=== PATIENT | male | born 1960 | race Caucasian/White ===

== ENCOUNTER 2020-10-15 13:32 | Outpatient (AMB) | payer MEDICARE, MEDICAID, SELFPAY ==
[2020-10-15 13:35] VITALS: BP 138/70; PULSE 78; TEMP 35.6; O2SAT 98; BMI 28.2
--- NOTE | 2020-10-15 13:35 | MHC.OFFVIS ---
Vital Signs 10/15/20 13:35 Height 6 ft Weight 208 lb BMI 28.2 BP 138/70 Blood Pressure Location Lt brachial Position Sitting Pulse 78 Pulse Source Pulse Oximeter Temp 96.0 F L Pulse Oximetry (%) 98 Intake Visit Reasons: Establish care Allergies gabapentin (GABAPENTIN) Allergy (Unknown, Verified 10/31/20 22:49) suicidal ideation ketamine (KETAMINE) Allergy (Unknown, Verified 10/31/20 22:49) UNKNOWN Penicillins (PENICILLINS) Allergy (Unknown, Verified 10/31/20 22:49) UNKNOWN Medication List - Last Reconciled 10/15/20 by Jonatan Rosenberg MD acetaminophen 500 mg PO Q6H PRN amlodipine 10 mg PO DAILY aspirin 81 mg PO DAILY atorvastatin 80 mg PO DAILY buspirone 5 mg PO BID carvedilol 12.5 mg PO BID cholecalciferol (vitamin D3) 50 mcg PO DAILY hydroxyzine HCl 10 mg PO TID PRN insulin glargine (Lantus U-100 Insulin) 10 units subcut DAILY insulin lispro 10 units subcut TID lisinopril 2.5 mg PO DAILY ondansetron HCl 4 mg PO Q12H oxycodone 10 mg PO QID PRN sevelamer carbonate (Renvela) 2.4 grams PO TID ticagrelor 90 mg PO BID PFSH Medical History (Updated 11/01/20 @ 01:20 by Jonatan Rosenberg MD) Anxiety Vitamin D deficiency Coronary artery disease Cataract Diabetic retinopathy Blurred vision, bilateral Mixed hyperlipidemia Benign essential hypertension End stage renal disease on dialysis due to type 2 diabetes mellitus Diabetes mellitus Surgical History History of leg amputation History of cholecystectomy Family History Father Alive and well Mother Alive and well Social History Alcohol intake: never Physical Exam Vital Signs: Last Vital Signs Temp 96.0 F L 10/15/20 13:35 Pulse 78 10/15/20 13:35 BP 138/70 10/15/20 13:35 Pulse Ox 98 10/15/20 13:35 BMI result Body Mass Index 28.2 Assessment & Plan Assessment & Plan (1) Diabetes mellitus: Code(s): E11.9 - Type 2 diabetes mellitus without complications Category: Medical Plan - Jonatan Rosenberg MD: In-office HgbA1c done today is at 6.5% - goal is < 7.0% Reinforced diabetic diet Continue Lantus 10 units Q HS and Humalog 10 units TID with meals or per sliding scale Will refer back to endocrinology for further evaluation and management Orders: Referrals Endocrinology Referral (2) End stage renal disease on dialysis due to type 2 diabetes mellitus: Code(s): E11.22 - Type 2 diabetes mellitus with diabetic chronic kidney disease; N18.6 - End stage renal disease; Z99.2 - Dependence on renal dialysis Category: Medical Plan - Jonatan Rosenberg MD: Is currently on hemodialysis 3 times a week () Follow up with nephrology as scheduled Orders: Referrals Endocrinology Referral (3) Benign essential hypertension: Code(s): I10 - Essential (primary) hypertension Category: Medical [place] - Jonatan Rosenberg MD: Reinforced low sodium diet - goal is systolic BP of at least 120 to 130 mm (4) Mixed hyperlipidemia: Code(s): E78.2 - Mixed hyperlipidemia Category: [facility] - Jonatan Rosenberg MD: Reinforced low cholesterol diet Continue Atorvastatin 80 mg QD Coding Level of Care Code Est Pt Level 3 (75488) Diagnoses Diabetes mellitus E11.9 End stage renal disease on dialysis due to type 2 diabetes mellitus E11.22; N18.6; Z99.2 Benign essential hypertension I10 Mixed hyperlipidemia E78.2 AUDIT C Alcohol Use Questionnaire (AUDIT-C) 1. How often do you have a drink containing alcohol?: Never 3. How often do you have six or more drinks on one occasion?: Never Total Score: 0 PHQ-2/PHQ-9 PHQ-2 Over the last 2 weeks, how often have you been bothered by any of the following problems? 1. Little interest or pleasure in doing things: not at all 2. Feeling down, depressed, or hopeless: not at all Total score: 0
== END 2020-10-15 15:01 ==
LOC: HO.HMGH 13:32
PROVIDERS: PCP Internal Medicine; Visit Provider Internal Medicine
DX: E11.9 Type 2 diabetes mellitus without complications (principal); E11.22 Type 2 diabetes mellitus with diabetic chronic kidney disease; N18.6 End stage renal disease; Z99.2 Dependence on renal dialysis; I12.0 Hypertensive chronic kidney disease with stage 5 chronic kidney disease or end stage renal disease; E78.2 Mixed hyperlipidemia
CPT/HCPCS: 99499

== ENCOUNTER → 2020-11-06 09:32 | Outpatient (REF) | payer MEDICARE, MEDICAID, SELFPAY ==
--- NOTE | 2020-11-06 09:41 | ECG_ITS ---
Test Reason : HX UT PRE OP Blood Pressure : / mmHG Vent. Rate : 089 BPM Atrial Rate : 089 BPM P-R Int : 154 ms QRS Dur : 120 ms QT Int : 396 ms P-R-T Axes : 045 046 -10 degrees QTc Int : 481 ms Normal sinus rhythm Possible Inferior infarct , age undetermined ST depression lateral leads Abnormal ECG No previous ECGs available Referred By: Jonatan Rosenberg Electronically Signed By:YAS GONZALEZ
[2020-11-06 10:05] LABS: MANUAL DIFF FLAG NO
[2020-11-06 10:09] LABS: Basophils Absolute Auto 0.1 X10*3/uL (0.0-0.2); Basophils Percent Auto 0.5 % (0-2); Eosinophils Absolute Auto 0.3 X10*3/uL (0.0-0.4); Eosinophils Percent Auto 3.2 % (0-4); Hematocrit 31.9 % (42-52); Hemoglobin 10.2 g/dl (14.0-18.0); Imm Gran Abs Auto 0.04 X10*3/uL (0.00-0.03); Imm Gran Pct Auto 0.4 % (0.0-0.4); Lymphocytes Absolute Auto 1.8 X10*3/uL (1.2-4.9); Lymphocytes Percent Auto 19.2 % (20-40); Mean Corpuscular Hemoglobin 29.1 pg (27.0-33.0); Mean Corpuscular Volume 90.9 fL (80-98); Mean Platelet Volume 9.1 fL (9.4-12.4); Monocytes Absolute Auto 0.6 X10*3/uL (0.1-1.2); Monocytes Percent Auto 6.2 % (2-11); Neutrophils Absolute Auto 6.6 X10*3/uL (2.0-8.3); Neutrophils Percent Auto 70.5 % (45-73); Platelet Count 255 X10*3/uL (160-400); Red Blood Count 3.51 X10*6/uL (4.60-5.80); Red Cell Distribution Width 13.3 % (11.0-16.0); White Blood Count 9.3 X10*3/uL (4.8-10.8)
[2020-11-06 10:35] LABS: Alanine Aminotransferase 50 U/L (0-40); Albumin Level 4.2 g/dL (3.5-5.0); Alkaline Phosphatase 201 U/L (39-117); Anion Gap 15 (12-20); Aspartate Amino Transferase 58 U/L (5-37); Bilirubin Total 0.7 mg/dL (0.0-1.0); Blood Urea Nitrogen 32 mg/dL (9-16); Calcium 8.8 mg/dL (8.4-10.2); Carbon Dioxide 28 mmol/L (22-29); Chloride 99 mmol/L (96-108); Cholesterol 104 mg/dL; Estimated Glomerular Filt Rate 13; Glucose Fasting 169 mg/dL (60-99); HDL Cholesterol 25 mg/dL; LDL Cholesterol Calculated 52 mg/dl; Potassium 4.2 mmol/L (3.3-5.1); Sodium 138 mmol/L (135-145); Total Protein 6.9 g/dL (6.5-8.0); Triglycerides 136 mg/dL
== END ==
LOC: HO.CARD 09:32
PROVIDERS: PCP Internal Medicine; Visit Provider Internal Medicine
DX: Z01.818 Encounter for other preprocedural examination (principal); I12.0 Hypertensive chronic kidney disease with stage 5 chronic kidney disease or end stage renal disease; N18.6 End stage renal disease; E78.2 Mixed hyperlipidemia; E11.22 Type 2 diabetes mellitus with diabetic chronic kidney disease; E78.00 Pure hypercholesterolemia, unspecified; H26.9 Unspecified cataract; Z99.2 Dependence on renal dialysis
CPT/HCPCS: 36415; 80053; 80061; 85025; 93005